=== PATIENT | female | born 1990 | race Two or more races ===

== ENCOUNTER 2018-07-22 12:45 | Inpatient (IN) | payer OTHER ==
[2018-07-22 13:37] VITALS: BMI 32.5
[2018-07-22 13:40] LABS: BASO % 0.1 % (0-2.0); EOS % 1.2 % (0-4.5); HEMATOCRIT 35.5 % (32.4-45.2); HEMOGLOBIN 11.7 GM/dL (10.7-15.3); LYMPH % 9.7 % (8-40); MCH 24.6 pg (25.7-33.7); MEAN CELL VOLUME 74.5 fl (80-96); MEAN PLT VOLUME 7.4 fl (7.5-11.1); MONO % 5.7 % (3.8-10.2); NEUT % 83.3 % (42.8-82.8); PLATELET COUNT 365 K/MM3 (134-434); RBC 4.76 M/mm3 (3.60-5.2); RDW 16.3 % (11.6-15.6); WHITE BLOOD COUNT 12.6 K/mm3 (4.0-10.0)
[2018-07-22] MEDS ORDERED: OXYTOCIN 20 UNITS in 0.9% NS 20 UNIT/1,000 ML INFUS.BAG IV ONE (13:43)
[2018-07-22] MEDS ORDERED: LIDOCAINE HCL 1% PRESERVATIVE FREE - 30ML VIAL ONE (13:44)
[2018-07-22] MEDS ORDERED: OXYTOCIN 20 UNITS in 0.9% NS 20 UNIT/1,000 ML INFUS.BAG IV SCH (13:50)
[2018-07-22 13:53] LABS: INR 1.08 (0.83-1.09); PROTHROMBIN TIME (PATIENT) 12.7 SEC (9.7-13.0)
--- NOTE | 2018-07-22 14:04 | HP ---
Past Medical History - Primary Care Physician PCP:: Usha Oropeza - Admission Chief Complaint: 28yo P1 @ 38.2 with clear LOF @ 12:15 , contructions, no VB and FM History of Present Illness: 1. 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 wnl 2. GCT -170 - GTT -wnl 3. GBS positive for Ampicillin in labor 4. Tdap and Flu shot given during History Source: Patient, Medical Record Limitations to Obtaining History: No Limitations - Past Medical History ...: 3 ...Para: 1 ...Term: 1 ...Spon : 1 ...LMP: 10/22/17 ... Weeks Gestation by Dates: 39 ...EDC by Dates: 07/29/18 - Past Surgical History Past Surgical History: Yes: None Hx Myomectomy: No Hx Transabdominal Cerclage: No - Smoking History Smoking history: Never smoked Have you smoked in the past 12 months: No - Alcohol/Substance Use Hx Alcohol Use: No History of Substance Use: reports: None - Social History History of Recent Travel: No Home Medications - Allergies Allergies/Adverse Reactions: Allergies Allergy/AdvReac Type Severity Reaction Status Date / Time latex Allergy Intermediate Swelling Verified 07/22/18 13:26 - Home Medications Home Medications: Ambulatory Orders Vit/Iron Fum/Folic AC [ Tablet] 1 each PO DAILY 04/17/14 Review of Systems - Review of Systems Constitutional: reports: No Symptoms Eyes: reports: No Symptoms HENT: reports: No Symptoms Neck: reports: No Symptoms Cardiovascular: reports: No Symptoms Respiratory: reports: No Symptoms Gastrointestinal: reports: No Symptoms Genitourinary: reports: No Symptoms Breasts: reports: No Symptoms Reported Musculoskeletal: reports: No Symptoms Integumentary: reports: No Symptoms Neurological: reports: No Symptoms Endocrine: reports: No Symptoms Hematology/Lymphatic: reports: No Symptoms Psychiatric: reports: No Symptoms Pain Intensity: 9 Physical Exam - Maternity Vital Signs: Vital Signs Temperature 98.4 F 07/22/18 13:30 Pulse Rate 84 07/22/18 13:30 Respiratory Rate 18 07/22/18 13:30 Blood Pressure 124/76 07/22/18 13:30 O2 Sat by Pulse Oximetry (%) Constitutional: Yes: Well Nourished, No Distress, Calm Eyes: Yes: WNL, Conjunctiva Clear, EOM Intact HENT: Yes: WNL, Atraumatic, Normocephalic Neck: Yes: WNL, Supple, Trachea Midline Cardiovascular: Yes: WNL, Regular Rate and Rhythm Lungs: Clear to auscultation Breast(s): Yes: WNL - Abdominal Exam/OB Fundal Height: 38 (EFW 6.5lb) Number of Fetuses: Single Presentation: Vertex Contractions: Yes Regularity: Regular Intensity: Mod/Strong Monitor Mode: External Heart Rate (range): 140 Heart Rate Location: Midline Category: I Accelerations: Uniform Decelerations: None - Vaginal Exam/OB Vaginal Bleediing: No Speculum Exam: No Dilatation (cm): 9 Effacement (%): 100 Amniotic Membrane Status: Ruptured Nitrazine Test: Positive Amniotic Fluid: Yes: Clear Presentation: Vertex/Position Station: 0 - Physical Exam Musculoskeletal: Yes: WNL Extremities: Yes: WNL Integumentary: Yes: WNL ...Motor Strength: WNL Psychiatric: Yes: WNL, Alert, Oriented - Labs Lab Results: Apos/RI/RPR - nr/HepB neg/ HIV - neg CBC, BMP 07/22/18 13:20 Assessment/Plan 28yo P 1 @ 38.2 wks with PROM clear fluid in active labor GBS pos - ampicillin given Admit to L&D Labs, NPO, IVF Patient declined pain meds feels pressur, desires to push Adequate pelvis Anticipate
--- NOTE | 2018-07-22 14:05 | PN ---
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
[2018-07-22] MEDS ORDERED: BISACODYL 10 MG SUPP.RECT RC PRN (14:09)
[2018-07-22] MEDS ORDERED: METHYLERGONOVINE MALEATE 0.2 MG/1 ML AMP IM PRN (14:09)
[2018-07-22] MEDS ORDERED: AMPICILLIN - 2 GM in SODIUM CHLORIDE 100 ML IVPB ONE (14:09)
[2018-07-22] MEDS ORDERED: BENZOCAINE 20% 57 GM BOTTLE TP PRN (14:09)
[2018-07-22] MEDS ORDERED: WITCH HAZEL 50% (TUCKS) 40 PAD/JAR PAD TP PRN (14:09)
[2018-07-22] MEDS ORDERED: BENZOCAINE 28 GM HEMORRHOIDAL OINTMENT TP PRN (14:09)
[2018-07-22 14:10] LABS: ANION GAP 8 MMOL/L (8-16); BLOOD UREA NITROGEN 7 mg/dL (7-18); CALCIUM 8.8 mg/dL (8.5-10.1); CHLORIDE 106 mmol/L (98-107); CO2 23 mmol/L (21-32); CREATININE 0.5 mg/dL (0.55-1.3); GLUCOSE,RANDOM 69 mg/dL (74-106); SODIUM 137 mmol/L (136-145)
[2018-07-22] MEDS ORDERED: ELECTROLYTE-148 SOLN 1,000 ML IV SCH (14:15)
[2018-07-22] MEDS ORDERED: D5W-LR W/ 20 UNITS OXYTOCIN 1,000 ML IV SCH (14:15)
[2018-07-22 14:19] LABS: ARTERIAL BLD GAS O2 SATURATION 28.1 % (90-98.9); ARTERIAL BLOOD GAS BASE EXCESS -1.3 meq/l (-2-2); ARTERIAL BLOOD GAS PCO2 58.7 mmHg (35-45); ARTERIAL BLOOD GAS PO2 19.2 mmHg (80-100); ARTERIAL BLOOD GAS pH 7.28 (7.35-7.45)
[2018-07-22 14:23] LABS: VENOUS PC02 43.3 mmHg (38-52); VENOUS PH 7.38 (7.32-7.42); VENOUS PO2 31.1 mmHg (28-48)
[2018-07-22] MEDS ORDERED: TUBERCULIN PPD 5 TU/0.1ML SYRINGE (IN PATIENT USE ONLY) ID ONE (16:00)
[2018-07-22] MEDS: FERROUS SO4 325 MG TABLET (FP) PO SCH (22:05)
[2018-07-22] MEDS: SENNOSIDES/DOCUSATE COMBO (SENNA PLUS) TABLET (UD) PO PRN (22:05)
[2018-07-22] MEDS: ACETAMINOPHEN 325 MG TABLET (FP) PO PRN (23:29)
[2018-07-22] MEDS: IBUPROFEN 600 MG TABLET (FP) PO PRN (23:29)
[2018-07-23 08:10] LABS: BASO % 0.3 % (0-2.0); EOS % 1.3 % (0-4.5); HEMATOCRIT 31.1 % (32.4-45.2); HEMOGLOBIN 10.2 GM/dL (10.7-15.3); LYMPH % 14.7 % (8-40); MCH 24.7 pg (25.7-33.7); MCHC 32.7 g/dl (32.0-36.0); MEAN CELL VOLUME 75.7 fl (80-96); MEAN PLT VOLUME 7.8 fl (7.5-11.1); MONO % 6.8 % (3.8-10.2); NEUT % 76.9 % (42.8-82.8); PLATELET COUNT 289 K/MM3 (134-434); RBC 4.11 M/mm3 (3.60-5.2); RDW 16.2 % (11.6-15.6); WHITE BLOOD COUNT 11.8 K/mm3 (4.0-10.0)
--- NOTE | 2018-07-23 10:18 | PN ---
Post Progress Note - Subjective Subjective: No complains, voiding, ambulating, tolerating PO Post Day: 1 Type of Delivery: Vital Signs: Vital Signs Temperature 98.3 F 07/23/18 09:47 Pulse Rate 74 07/23/18 09:47 Respiratory Rate 20 07/23/18 09:47 Blood Pressure 107/62 07/23/18 09:47 O2 Sat by Pulse Oximetry (%) Breast Exam: Yes: Soft Uterus: Yes: Fundus Firm, Non-tender Abdomen/GI: Yes: Abdomen soft Lochia: Yes: Rubra Lochia, amount: Small Perineum: Yes: Intact Activity: Ambulating - Labs Labs: CBC WBC 11.8 K/mm3 (4.0-10.0) H 07/23/18 06:30 RBC 4.11 M/mm3 (3.60-5.2) 07/23/18 06:30 Hgb 10.2 GM/dL (10.7-15.3) L 07/23/18 06:30 Hct 31.1 % (32.4-45.2) L 07/23/18 06:30 MCV 75.7 fl (80-96) L 07/23/18 06:30 MCH 24.7 pg (25.7-33.7) L 07/23/18 06:30 MCHC 32.7 g/dl (32.0-36.0) 07/23/18 06:30 RDW 16.2 % (11.6-15.6) H 07/23/18 06:30 Plt Count 289 K/MM3 (134-434) D 07/23/18 06:30 MPV 7.8 fl (7.5-11.1) 07/23/18 06:30 Absolute Neuts (auto) 9.0 K/mm3 (1.5-8.0) H 07/23/18 06:30 Neutrophils % 76.9 % (42.8-82.8) 07/23/18 06:30 Lymphocytes % 14.7 % (8-40) D 07/23/18 06:30 Monocytes % 6.8 % (3.8-10.2) 07/23/18 06:30 Eosinophils % 1.3 % (0-4.5) 07/23/18 06:30 Basophils % 0.3 % (0-2.0) 07/23/18 06:30 Nucleated RBC % 0 % (0-0) 07/23/18 06:30 Assessment/Plan 28yo P2 now s/p VSS, Afebrile doing well Baby boy, not for circumcision Rh positive no need for Rhogam continue routine care
[2018-07-23] MEDS: FERROUS SO4 325 MG TABLET (FP) PO SCH ×2 (10:41→22:01)
[2018-07-23] MEDS: PRENATAL VITAMINS W/ FOLIC ACID TABLET (FP) PO SCH (10:41)
[2018-07-23] MEDS: SENNOSIDES/DOCUSATE COMBO (SENNA PLUS) TABLET (UD) PO PRN (22:01)
[2018-07-23] MEDS: IBUPROFEN 600 MG TABLET (FP) PO PRN (22:59)
[2018-07-23] MEDS: ACETAMINOPHEN 325 MG TABLET (FP) PO PRN (23:00)
--- NOTE | 2018-07-24 07:12 | DS ---
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 Signs: Vital Signs Temperature 98.8 F 07/23/18 22:00 Pulse Rate 80 07/23/18 22:00 Respiratory Rate 20 07/23/18 22:00 Blood Pressure 126/74 07/23/18 22:00 O2 Sat by Pulse Oximetry (%) Constitutional: Yes: Well Nourished, No Distress, Calm Eyes: Yes: WNL, Conjunctiva Clear, EOM Intact HENT: Yes: WNL, Atraumatic, Normocephalic Neck: Yes: WNL, Supple, Trachea Midline Cardiovascular: Yes: WNL, Regular Rate and Rhythm Respiratory: Yes: WNL, Regular, CTA Bilaterally Gastrointestinal: Yes: WNL, Normal Bowel Sounds, Soft Renal/: Yes: WNL Pelvis: Yes: WNL External Genitalia: Yes: Normal ....Post : Yes: Uterus firm, Uterus non-tender Breast(s): Yes: WNL Musculoskeletal: Yes: WNL Extremities: Yes: WNL Edema: No Integumentary: Yes: WNL Neurological: Yes: WNL, Alert, Oriented ...Motor Strength: WNL Psychiatric: Yes: WNL, Alert, Oriented Labs: CBC, BMP 07/23/18 06:30 07/22/18 13:20 Delivery - Delivery Vaginal Delivery: No Problems Type of Anesthesia: None Episiotomy/Laceration: None EBL (cc): 300 Delivery, Single - Stages of Labor Date 1st Stage Initiatied: 07/22/18 Time 1st Stage Initiated: 10:00 Date 2nd Stage Initiated: 07/22/18 Time 2nd Stage Initiated: 13:15 Date of Delivery: 07/22/18 Time of Delivery: 13:48 Time Placenta Delivered: 13:50 Placenta: Yes: Spontaneous - Condition of Infant 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 Infant Gender: Male Position: Left, OA Total Hours ROM (Hrs/Mins): 1.5hrs - 1 Minute Total Score: 9 5 Minutes Total Score: 9 - [place] Feeding Plan Initial Plan: Exclusive throughout hospitalization Benefits of Exclusively reinforced: Yes Remarks - Remarks Remarks: Uncomplicated vaginal delivery of viable male, cord aroung the neck x 1 reduced; uncomplicated head and shoulders delivery Discharge Summary Reason For Visit: LABOR Procedures: Principal: Normal spontaneous vaginal delivery Condition: Good - Instructions Diet, Activity, Other Instructions: Physical activity Resume your normal everyday activity as tolerated no heavy lifting or exercise until seen by your surgeon. You may walk unlimited mague of and climb stairs. You may resume driving the car when you feel safe and comfortable behind the wheel. No sexual activity as instructed. Wound care If you have a bandage, leave it on, and keep dry for 48-72 hours. After that time discard the outer bandage. If they are tapes on the skin under the out of bandage leave them in place. They will peel off in the next 7 to 10 days. Do Not Peel them off. You may shower the day after surgery. If there are tapes present on the skin, you may shower over them. Diet There are no dietary restrictions. Eat healthy, high-fiber foods. Drink 6 to 8 glasses of liquid each day. This will assist in keeping your bowels are regular. Pain management You may take Tylenol or acetaminophen or Ibuprofen (for example, Motrin, Advil etc.) from my pain prescription medication is ordered should be taken as prescribed for moderate to severe pain. Call MD for any of the following: Severe pain not relieved by medication Fever of 101 or higher Excessive bleeding or drainage on dressing Inability to urinate Disposition: HOME - Home Medications Comprehensive Discharge Medication List: Ambulatory Orders Vit/Iron Fum/Folic AC [ Tablet] 1 each PO DAILY 04/17/14
[2018-07-24] MEDS: ACETAMINOPHEN 325 MG TABLET (FP) PO PRN ×2 (08:16→12:01)
[2018-07-24] MEDS: IBUPROFEN 600 MG TABLET (FP) PO PRN ×2 (08:16→12:00)
[2018-07-24] MEDS: PRENATAL VITAMINS W/ FOLIC ACID TABLET (FP) PO SCH (10:31)
[2018-07-24] MEDS: FERROUS SO4 325 MG TABLET (FP) PO SCH (10:31)
[2018-07-24 11:19] VITALS: BP 105/64; PULSE 71; TEMP 97.6
== END 2018-07-24 12:55 | disposition home or self-care (01) | DRG 807 ==
LOC: JDEL 12:45 → JLDR 12:55 → J3W 15:20
PROVIDERS: ADMIT Obstetrics & Gynecology; ATTEND Obstetrics & Gynecology
PROC: 10E0XZZ Delivery of Products of Conception, External Approach (ICD-10-PCS; principal; 2018-07-22)
DX: O69.81X0 Labor and delivery complicated by cord around neck, without compression, not applicable or unspecified (principal); Z37.0 Single live birth; Z22.330 Carrier of Group B streptococcus; Z3A.38 38 weeks gestation of pregnancy
CPT/HCPCS: 36415; 36600; 59409; 80048; 82803; 85025; 85610; 85730; 86593; 86850; 86870; 86900; 86901; 86902